=== PATIENT | male | born 1990 | race Two or more races ===

== ENCOUNTER 2021-06-27 02:25 | Emergency (ER) | payer MEDICAID, OTHER ==
[~2021-06-27] VITALS: Ht 152.4 cm; Wt 52.2 kg
[2021-06-27] MEDS ORDERED: LIDOCAINE 1% HCL (LOCAL ANESTH.) INJ 20ML MDV ID ONE (04:15)
[2021-06-27] MEDS ORDERED: BACITRACIN TOP OINT 1 UD PKG TOP ONE (04:15)
[2021-06-27] MEDS ORDERED: cefTRIAXone SOD 1,000 MG VL IM ONE (05:00)
[2021-06-27] MEDS ORDERED: TETANUS-DIPTH-ACEL PERTUSSIS 0.5ML SYR Tdap IM ONE (05:00)
[2021-06-27 06:41] VITALS: BP 130/99
== END 2021-06-27 05:06 | disposition home or self-care (01) ==
LOC: ER 02:25
DX: S01.81XA Laceration without foreign body of other part of head, initial encounter (principal); W01.0XXA Fall on same level from slipping, tripping and stumbling without subsequent striking against object, initial encounter; Y93.89 Activity, other specified; Y92.89 Other specified places as the place of occurrence of the external cause; Y99.8 Other external cause status
CPT/HCPCS: 12013; 70450; 70486; 90471; 90715; 96372; 99284; J0696; J2001